=== PATIENT | female | born 1960 | race Caucasian/White ===

== ENCOUNTER 2022-02-19 09:21 | Day surgery (SDC) | payer OTHER ==
[~2022-02-19] VITALS: Ht 147.3 cm; Wt 75.5 kg
[2022-02-19] MEDS ORDERED: INDERAL 20MG20 MG PO (10:35)
[2022-02-19] MEDS ORDERED: ISMO 20MG20 MG PO (10:36)
[2022-02-19] MEDS ORDERED: MOBIC15 MG PO (10:37)
[2022-02-19] MEDS ORDERED: ASPIRIN E.C. 8181 MG PO (10:38)
[2022-02-19 11:35] VITALS: BP 102/56; PULSE 70; TEMP 97.6
--- NOTE | 2022-02-19 11:35 | NUR ---
PATIENT RETURNS TO ROOM 4 VIA CART. ASSIST X 1 TO THE CHAIR. AT BEDSIDE. VITAL SIGNS WNL. PATIENT REQUESTS COFFEE, CRACKERS, AND PUDDING. WILL CONTINUE TO MONITOR.
[2022-02-19 11:50] VITALS: BP 105/73; PULSE 76
--- NOTE | 2022-02-19 11:50 | NUR ---
PATIENT IS DOING WELL. DENIES ANY PAIN OR NAUSEA AFTER EATING. VITAL SIGNS WNL. DOCTOR AT BEDSIDE. IV REMOVED. WILL CONTINUE TO MONITOR.
--- NOTE | 2022-02-19 11:50 | NUR ---
PATIENT IS DOING WELL. DENIES ANY PAIN OR NAUSEA AFTER EATING. VITAL SIGNS WNL. DOCTOR AT BEDSIDE. IV REMOVED. WILL CONTINUE TO MONITOR.
[2022-02-19 12:05] VITALS: BP 101/61; PULSE 74
--- NOTE | 2022-02-19 12:05 | NUR ---
PATIENT IS READY FOR DISCHARGE. INSTRUCTIONS REVIEWED. LAST SET OF VITALS WNL. WILL DISCHARGE ONCE SHE IS DRESSED.
--- NOTE | 2022-02-19 12:05 | NUR ---
PATIENT IS READY FOR DISCHARGE. INSTRUCTIONS REVIEWED. LAST SET OF VITALS WNL. WILL DISCHARGE ONCE SHE IS DRESSED.
[2022-02-19 12:14] VITALS: BP 95/64; PULSE 78; TEMP 97.8
== END 2022-02-19 12:20 | disposition home or self-care (01) ==
LOC: SDCO 09:21
DX: Z12.11 Encounter for screening for malignant neoplasm of colon (principal); D12.2 Benign neoplasm of ascending colon; D12.4 Benign neoplasm of descending colon; K63.5 Polyp of colon; K63.89 Other specified diseases of intestine; F17.210 Nicotine dependence, cigarettes, uncomplicated; Z80.0 Family history of malignant neoplasm of digestive organs
CPT/HCPCS: J2704; J7120